=== PATIENT | female | born 1965 | race Caucasian/White ===

== ENCOUNTER → 2020-01-28 | Outpatient (CLI) | payer OTHER ==
--- OUTSIDE RECORDS SUMMARY | 2020-01-29 15:40 | XMS REPORT ---
:1965 [facility] [address] [place] [address] Care Team Providers Name Role Phone Herminia POON Primary Care Physician Unavailable Trev MENCHACA Attending Clinician Unavailable Apolonia Lee Unavailable Allergies, Adverse Reactions, Alerts This patient has no known allergies or adverse reactions. Medications Ordered Filled Start Stop Current Ordering Indication Dosage Frequency Signature Comments Components Medication Medication Date Date Medication? Clinician (SIG) Name Name gabapentin Yes [id number] Take 3 (NEURONTIN) 5-22 tablets 100 MG 00:00: twice/day, capsule 00 4 tablets nightly gabapentin 2020- No [id number] Take 3 (NEURONTIN) 3-20 05-22 tablets 100 MG 00:00: 00:00 twice/day, capsule 00 :00 4 tablets nightly Lyrica 25 2018- 2019- No 1 Lyrica 25 mg oral 23 07-23 mg oral capsule 00:00: 00:00 capsule 00 :00 carBAMazepi 2018-1 Yes [id number] Take 1 1/2 ne 0-03 tablets po (TEGRETOL) 00:00: 2 time/day 200 mg 00 and 500 mg tablet po qhs (2 1/2 tablets) x 90 day supply Problems Condition Condition Condition Status Onset Resolution Last Treatin g Comments Name Details Category Date Date Treatment Clinician Date Chronic pain Complaint Active Jesus, syndrome 10-07 Laneshia 00:00: Apolonia 00 senior care Complaint Active Jesus, use of drug 10-07 Laneshia 00:00: Apolonia 00 Trigeminal Complaint Active Jesus, neuralgia 10-07 Laneshia 00:00: Apolonia 00 Procedures Procedure Date / Time Performed Performing Clinician [facility] e Office/outpatient Visit New 2018-10-07 00:00:00 Results This patient has no known results. Assessments Condition Name Status Diagnosis Date Treating Clinici an Trigeminal neuralgia Unknown Trigeminal neuralgia Unknown Encounters Start End Encounter Admission Attending Care Care Encounter Date/Time Date/Time Type Type Clinicians Facility Department ID 2019-08-13 2019-08-13 Outpatient OPAL MENCHACA [facility] [id number] 08:51:40 08:51:40 ERIBERTO 2019-08-07 2019-08-07 Outpatient [facility] [id number] 00:00:00 00:00:00 2018-10-07 2018-10-07 Office/outp Marbin Zazueta [id number] 00:00:00 00:00:00 [facility]A Visit [facility] Payers Payer Name Policy Type Policy Number Effective Date Expiration D ate [employer] CI [id number] Plan of Treatment Planned Activity Planned Date Details Comments Future Scheduled Test [code = ] Future Scheduled Test [code = ] Future Scheduled Test [code = ] Future Scheduled Test [code = ] Future Scheduled Test [code = ] Future Scheduled Test [code = ] Future Scheduled Test [code = ] Future Scheduled Test [code = ] Future Scheduled Test [code = ] Goal Social History Social Habit Start Date Stop Date Comments Tobacco Comment 2016-06-08 00:00:00 2016-06-08 00:00:00 Smoking Status Start Date Stop Date Current every day smoker 2016-06-08 00:00:00 2016-06-08 00:0 0:00 Vital Signs Vital Name Observation Time Observation Value Comments Height (inches) 2018-10-07 00:00:00 62.00 Weight (lbs) 2018-10-07 00:00:00 62.00 BP Systolic 2018-10-07 00:00:00 123 mm[Hg] BP Diastolic 2018-10-07 00:00:00 118 mm[Hg] Pulse 2018-10-07 00:00:00 77 /min Respiration 2018-10-07 00:00:00 17 /min BMI 2018-10-07 00:00:00 11 Pulse Oximetry 2018-10-07 00:00:00 97 /min Hospital Discharge Instructions No education material to display
== END ==
LOC: RAD 14:49
PROVIDERS: ATTEND Physician Assistant
DX: R10.30 Lower abdominal pain, unspecified (principal)

== ENCOUNTER → 2020-01-29 | Outpatient (CLI) | payer OTHER ==
--- NOTE | 2020-01-28 15:41 | RADIOLOGY REPORT (SQ) ---
EXAM DESCRIPTION: ACUTE ABDOMEN SERIES IMAGES COMPLETED DATE/TIME: 01/28/2020 2:51 pm REASON FOR STUDY: R10.30 LOWER ABDOMINAL PAIN, UNSPECIFIED R10.30 LOWER ABDOMINAL PAIN, UNSPECIFIED COMPARISON: None. NUMBER OF VIEWS: Three views. TECHNIQUE: Frontal chest, supine abdomen and upright/decubitus abdomen radiographic images acquired. LIMITATIONS: None. FINDINGS: CHEST: Lungs clear of infiltrates. FREE AIR: None. No abnormal gas collections. BOWEL GAS PATTERN: Nonobstructive pattern. No dilated loops or air fluid levels. CALCIFICATIONS: No suspicious calcifications. HARDWARE: None in the abdomen. SOFT TISSUES: No gross mass or suggestion of organomegaly. BONES: No acute fracture. No worrisome bone lesions. OTHER: No other significant finding. IMPRESSION: NO RADIOGRAPHIC EVIDENCE FOR ACUTE ABDOMINAL DISEASE. TECHNICAL DOCUMENTATION: JOB ID: [id number] 2010 [employer]- All Rights Reserved Reading location - IP/workstation name: [email or web address]
--- NOTE | 2020-01-29 14:49 | RADIOLOGY REPORT (SQ) ---
EXAM DESCRIPTION: CT ABD/PELVIS WITH IV ORAL IMAGES COMPLETED DATE/TIME: 01/29/2020 2:31 pm REASON FOR STUDY: R10.30 LOWER ABDOMINAL PAIN, UNSPECIFIED R10.30 LOWER ABDOMINAL PAIN, UNSPECIFIED COMPARISON: None. TECHNIQUE: CT scan of the abdomen and pelvis performed using helical scanning technique with dynamic intravenous contrast injection. No oral contrast. Images reviewed with lung, soft tissue, and bone windows. Reconstructed coronal and sagittal MPR images reviewed. Delayed images for evaluation of the urinary system also acquired. All images stored on PACS. All CT scanners at this facility use dose modulation, iterative reconstruction, and/or weight based d osing when appropriate to reduce radiation dose to as low as reasonably achievable (ALARA). [facility]: Dose Right [facility]: CareDose [facility]: Dose Right [facility]: Teradose 4D [facility]: NetMovie CONTRAST TYPE AND DOSE: contrast/concentration: Isovue 350.00 mmol/ml; Total Contrast Delivered: 61. 0 ml; Total Saline Delivered: 65.0 ml RENAL FUNCTION: Creatinine 0.8 RADIATION DOSE: CT Rad equipment meets quality standard of care and radiation dose reduction techniq ues were employed. CTDIvol: 2.4 - 2.4 mGy. DLP: 249 mGy-cm.. LIMITATIONS: None. FINDINGS: LOWER CHEST: No significant findings. No nodules or infiltrates. LIVER: Small hepatic cysts are noted. There is a sub callus or calcification on series 2, image 10. No suspicious findings. SPLEEN: Normal size. No focal lesions. PANCREAS: No masses. No significant calcifications. No adjacent inflammation or peripancreatic fluid collections. Pancreatic duct not dilated. GALLBLADDER: Surgically absent. ADRENAL GLANDS: No significant masses or asymmetry. RIGHT KIDNEY AND URETER: No solid masses. No significant calcifications. No hydronephrosis or hyd roureter. LEFT KIDNEY AND URETER: No solid masses. No significant calcifications. No hydronephrosis or hydr oureter. AORTA AND VESSELS: No aneurysm. No dissection. Renal arteries, SMA, celiac without stenosis. RETROPERITONEUM: No retroperitoneal adenopathy, hemorrhage or masses. BOWEL AND PERITONEAL CAVITY: No masses or inflammatory changes. No free fluid or peritoneal masses. APPENDIX: Not visualized. PELVIS: No mass. No free fluid. Normal bladder. ABDOMINAL WALL: No masses. No hernias. BONES: No significant or acute findings. OTHER: Asymmetric soft tissue attenuation in the right breasts in the lower outer quadrant. Possibly intramammary lymph node. Overall size is 1.0 x 2.0 cm. IMPRESSION: 1. No acute findings in the abdomen or pelvis. 2. Asymmetric soft tissue opacity in the lower outer quadrant of the right breast. Recommend ultras ound or correlation with mammography. TECHNICAL DOCUMENTATION: JOB ID: [id number] Quality ID # [id number]: Final reports with documentation of one or more dose reduction techniques (e.g., Au tomated exposure control, adjustment of the mA and/or kV according to patient size, use of iterative reconstruction technique) 2010 [employer]- All Rights Reserved Reading location - IP/workstation name: [email or web address]
== END ==
LOC: RAD 14:04
PROVIDERS: ATTEND Physician Assistant
DX: R10.30 Lower abdominal pain, unspecified (principal)
CPT/HCPCS: 74022; 74177; 82565